=== PATIENT | female | born 1965 | race Caucasian/White ===

== ENCOUNTER 2016-09-24 13:47 | Emergency (ER) | payer BC ==
[2016-09-24 13:48] VITALS: BMI 37.8
[2016-09-24] MEDS ORDERED: Sodium Chloride 0.9% 1,000 ML IV ONE (14:49)
[2016-09-24] MEDS ORDERED: Sodium Chloride 0.9% 1,000 ML ONE (15:12)
[2016-09-24 15:14] LABS: HCG,QUALITATIVE URINE NEGATIVE (NEGATIVE)
[2016-09-24 15:16] LABS: BASO % 0.6 % (0.0-2.0); EOS # 0.1 K/uL (0.0-0.7); EOS % 2.1 % (0.0-4.0); HEMOGLOBIN 14.5 g/dL (11.0-16.0); LYMPH # 1.9 K/uL (1.0-4.3); LYMPH % 28.7 % (20.0-40.0); MEAN CELL VOLUME 89.5 fL (81.0-99.0); MEAN CORPUSCULAR HGB CONC 33.5 g/dL (33.0-37.0); MEAN PLATELET VOLUME 8.4 fL (7.2-11.7); MONO # 0.5 K/uL (0.0-0.8); MONO % 8.4 % (0.0-10.0); NEUT # 3.9 K/uL (1.8-7.0); NEUT % 60.2 % (50.0-75.0); RBC 4.84 Mil/uL (3.80-5.20); WHITE BLOOD COUNT 6.5 K/uL (4.8-10.8)
[2016-09-24 15:18] LABS: SQUAMOUS EPITHIAL 9 /hpf (0-5); URINE BACTERIA RARE (<OCC); URINE BILIRUBIN NEGATIVE (NEGATIVE); URINE BLOOD NEGATIVE (NEGATIVE); URINE CLARITY Hazy (Clear); URINE COLOR Yellow (YELLOW); URINE GLUCOSE (UA) NORMAL (Normal); URINE LEUKOCYTE ESTERASE TRACE Leu/uL (Negative); URINE NITRATE NEGATIVE (NEGATIVE); URINE PROTEIN NEGATIVE (NEGATIVE); URINE UROBILINOGEN NORMAL mg/dL (0.2-1.0)
[2016-09-24 15:25] LABS: ALBUMIN 4.4 g/dL (3.5-5.0)
[2016-09-24 15:28] LABS: ALB/GLOB RATIO 1.1 (1.0-2.1); ALT/SGPT 67 U/L (9-52); AST/SGOT 57 U/L (14-36); BLOOD UREA NITROGEN 17 mg/dL (7-17); CALCIUM 9.6 mg/dl (8.6-10.4); GFR AFRICAN-AMERICAN > 60; GFR NON-AFRICAN AMERICAN > 60; LIPASE 51 U/L (23-300)
[2016-09-24] MEDS ORDERED: Iohexol 350mg/ml 100 ML ONE (17:15)
--- NOTE | 2016-09-24 18:47 | CT ---
PROCEDURE: CT scan abdomen and pelvis dated 09/24/2016. . HISTORY: RLQ pain COMPARISON: Comparison made with CT scan abdomen pelvis 12/13/2013 TECHNIQUE: Contiguous axial images of the abdomen and pelvis pelvis performed following intravenous injection of approximately 100 cc Omnipaque 350 contrast material. Additional 2 dimensional sagittal and coronal reformats provided. . Coronal and Sagittal reformats generated. . Note that oral contrast material present in the stomach and proximal small bowel. Radiation dose: Total exam DLP = 1028.00 mGy-cm. . This CT exam was performed using one or more of the following dose reduction techniques: Automated exposure control, adjustment of the mA and/or kV according to patient size, and/or use of iterative reconstruction technique. FINDINGS: LOWER THORAX: Lung bases are clear. No infiltrate effusion or basilar pneumothorax. The the tech the the LIVER: The liver exhibits normal size measuring approximately 16 cm in CC dimension. Mild fatty hepatic infiltration. Re- demonstrated is a small approximately 11 mm in round/ elliptical shaped low-attenuation along the subcapsular surface right superior aspect right lobe liver which could represent small cyst based on Hounsfield units low double digits. . This appears unchanged from prior study GALLBLADDER AND BILE DUCTS: Gallbladder is physiologically distended. No evidence of intraluminal gallbladder calculi. . PANCREAS: Pancreas is grossly unremarkable. No pancreatic mass collection or calcification. SPLEEN: Re- demonstrated is a small splenule adjacent to the anterior inferior margin of the splenic parenchyma. ADRENALS: No adrenal lesions KIDNEYS AND URETERS: Kidneys that demonstrate symmetric nephrograms. No evidence of nephrolithiasis or hydronephrosis. There is a small approximately 12 mm low-attenuation focus in the posterolateral aspect inferior pole left kidney that exhibits Hounsfield units in the at mid to upper 20s that could represent a hyperdense cyst. Nonemergent renal ultrasound followup could recommended to confirm and exclude any solid components. BLADDER: Urinary bladder is physiologically distended. No evidence of intraluminal urinary bladder calculi. REPRODUCTIVE: There appears to be a tiny 8.5 mm follicular cyst left ovary APPENDIX: Normal-appearing appendix of best seen on axial image number [id number] and coronal image number [id number]. BOWEL: Evaluation of the bowel is limited due to the incomplete opacification. . As mentioned above, the stomach is distended with oral contrast material and a small amount of air. The visualized loops of small bowel exhibit normal contour and caliber. No evidence of acute mechanical small bowel obstruction. PERITONEUM: No gross free intraperitoneal air. No free or loculated fluid collections. . There is a small rita fat containing umbilical hernia LYMPH NODES: Multiple small nonspecific retroperitoneal lymph nodes are present. Additionally, there are a few scattered small lymph nodes right lower quadrant of the abdomen suggesting mesenteric adenitis. VASCULATURE: No evidence of abdominal aortic or iliac artery aneurysm. BONES: Minor multilevel degenerative spondylosis of the lower thoracic and lumbar spine. OTHER FINDINGS: Some vague infiltration changes in the. Sacral and perirectal fat nonspecific IMPRESSION: There is mild fatty hepatic infiltration. Small slightly low-attenuation focus left kidney that may represent hyperdense cyst however nonemergent ultrasound recommended to confirm and exclude any solid components. No evidence of nephrolithiasis or hydronephrosis. No evidence of acute appendicitis. . There are some vague infiltration changes seen in the presacral/perirectal fat nonspecific Few small nonspecific lymph nodes right lower quadrant of the abdomen suggesting mesenteric adenitis. There are also a few small nonspecific retroperitoneal lymph nodes. Small fat containing umbilical hernia. There appears to be a tiny approximately 8.5 mm follicular cyst left ovary Findings discussed with Dr. Allred at approximately 6:40 p.m. with written down and read back verification
--- NOTE | 2016-09-24 19:20 | C.PDOC ---
Time Seen by Provider: 09/24/16 14:36 Chief Complaint (Nursing): Abdominal Pain History Per: Patient Onset/Duration Of Symptoms: Days (few), Waxing/Waning Current Symptoms Are (Timing): Still Present Location Of Pain/Discomfort: RLQ Quality Of Discomfort: Sharp, "Pain" Alleviating Factors: None Additional History Per: Prior Records Past Medical History Reviewed: Historical Data, Nursing Documentation, Vital Signs Vital Signs: Last Vital Signs Temp 97.7 F 09/24/16 13:55 Pulse 85 09/24/16 18:50 Resp 18 09/24/16 18:50 BP 102/69 09/24/16 18:50 Pulse Ox 98 09/24/16 18:50 - Medical History PMH: Anxiety, Kidney Stones (?), Migraine, Seizures (?) Other Surgeries: Salpingectomy Family History: States: Unknown Family Hx - Social History Hx Tobacco Use: No Hx Alcohol Use: No Hx Substance Use: No - Immunization History Hx Tetanus Toxoid Vaccination: No Hx Influenza Vaccination: Yes Hx Pneumococcal Vaccination: No Review Of Systems Except As Marked, All Systems Reviewed And Found Negative. Constitutional: Negative for: Fever, Weakness Cardiovascular: Negative for: Chest Pain Respiratory: Negative for: Shortness of Breath Gastrointestinal: Positive for: Abdominal Pain. Negative for: Vomiting Genitourinary: Positive for: Frequency (?) Musculoskeletal: Positive for: Back Pain (resolved). Negative for: Neck Pain Skin: Negative for: Rash Neurological: Negative for: Weakness, Numbness, Seizures, Altered Mental Status Physical Exam - Physical Exam Appears: Non-toxic, No Acute Distress Skin: Normal Color, Warm, Dry, No Rash Head: Atraumatic, Normacephalic Eye(s): bilateral: PERRL, EOMI Neck: Normal ROM, Supple Cardiovascular: Rhythm Regular Respiratory: Normal Breath Sounds, No Accessory Muscle Use Gastrointestinal/Abdominal: Soft, Tenderness (RLQ), No Guarding, No Rebound Back: No CVA Tenderness Extremity: Normal ROM Neurological/Psych: Oriented x3, Normal Motor, Normal Sensation ED Course And Treatment - Laboratory Results Result Diagrams: 09/24/16 15:09 09/24/16 15:09 Interpretation Of Abnormal: Probable UTI Urine POC: Negative O2 Sat by Pulse Oximetry: 98 Pulse Ox Interpretation: Normal - CT Scan/US CT abd/pelv. Other Rad Studies (CT/US): Read By Radiologist, Radiology Report Reviewed CT/US Interpretation: IMPRESSION: There is mild fatty hepatic infiltration. Small slightly low-attenuation focus left kidney that may represent hyperdense cyst however nonemergent ultrasound recommended to confirm and exclude any solid components. No evidence of nephrolithiasis or hydronephrosis. No evidence of acute appendicitis. . There are some vague infiltration changes seen in the presacral/perirectal fat nonspecific Few small nonspecific lymph nodes right lower quadrant of the abdomen suggesting mesenteric adenitis. There are also a few small nonspecific retroperitoneal lymph nodes. Small fat containing umbilical hernia. There appears to be a tiny approximately 8.5 mm follicular cyst left ovary Progress - Interventions Interventions:: Observation, Intravenous fluid - Medications Administered Intravenous: NSAID - Data Reviewed Data Reviewed: Lab, Diagnostic imaging, Old records - Patient Status Patient status: Mostly improved - Continuity of Care Discussed patient case with:: Patient, ED Nurse - Patient Plan Patient Plan: Discharge, F/U with PCP, Continue present meds Disposition Counseled Patient/Family Regarding: Studies Performed, Diagnosis, Need For Followup, Rx Given - Disposition Referrals: Myles Villanueva MD [Staff Provider] - Disposition: HOME/ ROUTINE Disposition Time: 19:21 Condition: STABLE Additional Instructions: Drink plenty of fluids. Follow up with your doctor for further evaluation and treatment. Return to the ER if you develop fever, vomiting, worsening of symptoms or if you have any other concerns. Prescriptions: Sulfamethoxazole/Trimethoprim [Bactrim DS 800 mg-160 mg] 1 tab PO BID #14 tab Instructions: Mesenteric Adenitis (ED), Urinary Tract Infection in Women (ED) - Clinical Impression Clinical Impression: Abdominal pain, Mesenteric adenitis, UTI (urinary tract infection)
[2016-09-24 19:46] VITALS: BP 111/75; PULSE 66; RESP 20; TEMP 98.4; O2SAT 99
== END 2016-09-24 19:46 | disposition home or self-care (01) ==
LOC: C.ER 13:47
DX: N39.0 Urinary tract infection, site not specified (principal); I88.0 Nonspecific mesenteric lymphadenitis
CPT/HCPCS: 74177; 80053; 81001; 83690; 84703; 85025; 87086; 96374; 99285; J1885; J7040; Q9967

== ENCOUNTER 2017-04-22 15:38 | Emergency (ER) | payer BC ==
[2017-04-22 16:39] VITALS: BMI 41.5
[2017-04-22] MEDS ORDERED: Sodium Chloride 0.9% 1,000 ML IV ONE (17:45)
--- NOTE | 2017-04-22 18:00 | C.PDOC ---
History Of Present Illness 52yo female with history of migraines and gastric ulcers presents with complaints of abdominal pain since 4 days ago associated with diarrhea for the first 2 days and now with constipation. She also reports a headache with associated bodyaches. She states she has dark colored urine but denies any hematuria. She has been taking OTC imodium and nausene with no relief of symptoms. She did receive her flu vaccination this year. No other complaints. Time Seen by Provider: 04/22/17 17:10 Chief Complaint (Nursing): Abdominal Pain History Per: Patient History/Exam Limitations: no limitations Onset/Duration Of Symptoms: Days Current Symptoms Are (Timing): Still Present Location Of Pain/Discomfort: Diffuse Quality Of Discomfort: "Pain" Associated Symptoms: Nausea, Vomiting, Diarrhea, Constipation Past Medical History Reviewed: Historical Data, Nursing Documentation, Vital Signs Vital Signs: Last Vital Signs Temp 97.8 F 04/22/17 20:13 Pulse 65 04/22/17 20:13 Resp 18 04/22/17 20:13 BP 110/68 04/22/17 20:13 Pulse Ox 98 04/22/17 20:44 - Medical History PMH: Anxiety, Kidney Stones (?), Migraine, Seizures (?) Surgical History: No Surg Hx Family History: States: Unknown Family Hx - Social History Hx Tobacco Use: No Hx Alcohol Use: No Hx Substance Use: No - Immunization History Hx Tetanus Toxoid Vaccination: No Hx Influenza Vaccination: Yes Hx Pneumococcal Vaccination: No Review Of Systems Except As Marked, All Systems Reviewed And Found Negative. Constitutional: Negative for: Fever, Chills Gastrointestinal: Positive for: Abdominal Pain, Diarrhea, Constipation. Negative for: Nausea, Vomiting Physical Exam - Physical Exam Appears: Non-toxic, No Acute Distress Skin: Normal Color, Warm, Dry Head: Atraumatic, Normacephalic Eye(s): bilateral: Normal Inspection Neck: Supple Chest: Symmetrical Cardiovascular: Rhythm Regular Respiratory: Normal Breath Sounds Gastrointestinal/Abdominal: Bowel Sounds, Soft, Tenderness (diffuse), No Guarding, No Rebound Back: CVA Tenderness (Right sided) Extremity: Normal ROM Neurological/Psych: Oriented x3 ED Course And Treatment - Laboratory Results Result Diagrams: 04/22/17 18:10 04/22/17 18:10 O2 Sat by Pulse Oximetry: 98 (RA) Pulse Ox Interpretation: Normal Medical Decision Making Medical Decision Making: Impression: Abdominal pain Plan: -- Labs -- Fluids -- Protonix 40 mg IVP -- Toradol 30 mg IVP -- Rapid flu -- CT Abdomen & Pelvis with IV Contrast Time: 2034 Upon re-evaluation patient feels better and is stable for discharge home. Informed to follow up with Dr. Villanueva in 1-2 days. Diagnosis: UTI, abdominal pain. Disposition Counseled Patient/Family Regarding: Studies Performed, Diagnosis, Need For Followup, Rx Given - Disposition Referrals: Myles Villanueva MD [Staff Provider] - Disposition: HOME/ ROUTINE Disposition Time: 20:41 Condition: STABLE Additional Instructions: follow up with your doctor in 2 days call to make an appointment take medications as prescribed return to ER if symptoms worsens or progress Prescriptions: Famotidine [Pepcid] 20 mg PO BID #20 tab Sulfamethoxazole/Trimethoprim [Bactrim DS 800 mg-160 mg] 1 tab PO BID #14 tab traMADol [Ultram] 50 mg PO TID PRN #10 tab PRN Reason: Pain, Moderate (4-7) Instructions: Urinary Tract Infection in Women (ED), Abdominal Pain (ED) Forms: General Discharge Instructions, [facility] ([place]), Work Excuse - Clinical Impression Clinical Impression: Abdominal pain, UTI (urinary tract infection) - Scribe Statement The provider has reviewed the documentation as recorded by the Scribe (Vonnie Carmen) Provider Attestation: All medical record entries made by the Scribe were at my direction and personally dictated by me. I have reviewed the chart and agree that the record accurately reflects my personal performance of the history, physical exam, medical decision making, and the department course for this patient. I have also personally directed, reviewed, and agree with the discharge instructions and disposition.
[2017-04-22] MEDS ORDERED: Sodium Chloride 0.9% 1,000 ML ONE (18:11)
[2017-04-22 18:14] LABS: BASO # 0.1 K/uL (0.0-0.2); BASO % 0.8 % (0.0-2.0); EOS # 0.1 K/uL (0.0-0.7); HEMOGLOBIN 14.3 g/dL (11.0-16.0); LYMPH # 2.4 K/uL (1.0-4.3); LYMPH % 31.6 % (20.0-40.0); MEAN CELL VOLUME 88.1 fL (81.0-99.0); MEAN CORPUSCULAR HEMOGLOBIN 30.2 pg (27.0-31.0); MEAN CORPUSCULAR HGB CONC 34.2 g/dL (33.0-37.0); MEAN PLATELET VOLUME 8.1 fL (7.2-11.7); MONO # 0.6 K/uL (0.0-0.8); MONO % 7.7 % (0.0-10.0); NEUT # 4.4 K/uL (1.8-7.0); NEUT % 57.9 % (50.0-75.0); NRBC % 0.1 % (0.0-2.0); RBC 4.72 Mil/uL (3.80-5.20); RED CELL DISTRIBUTION WIDTH 13.2 % (11.5-14.5); WHITE BLOOD COUNT 7.6 K/uL (4.8-10.8)
[2017-04-22 18:27] LABS: ALB/GLOB RATIO 1.1 (1.0-2.1); ALBUMIN 4.4 g/dL (3.5-5.0); ALT/SGPT 41 U/L (9-52); AST/SGOT 31 U/L (14-36); BLOOD UREA NITROGEN 20 mg/dL (7-17); CALCIUM 9.4 mg/dl (8.6-10.4); GFR AFRICAN-AMERICAN > 60; GFR NON-AFRICAN AMERICAN > 60; LIPASE 70 U/L (23-300)
[2017-04-22 18:44] LABS: URINE CLARITY Hazy (Clear)
[2017-04-22 18:45] LABS: URINE BILIRUBIN NEGATIVE (NEGATIVE); URINE BLOOD 1+ (NEGATIVE); URINE GLUCOSE (UA) Normal (Normal); URINE NITRATE NEGATIVE (NEGATIVE); URINE PROTEIN NEGATIVE (NEGATIVE); URINE UROBILINOGEN Normal mg/dL (0.2-1.0)
[2017-04-22 18:46] LABS: SQUAMOUS EPITHIAL 4 /hpf (0-5); URINE CALCIUM OXALATE CRYSTALS OCC /hpf (<OCC); URINE LEUKOCYTE ESTERASE 2+ Leu/uL (Negative)
[2017-04-22 18:47] LABS: URINE BACTERIA OCC (<OCC); URINE COLOR YELLOW (YELLOW)
[2017-04-22 19:00] VITALS: RESP 18
[2017-04-22] MEDS ORDERED: Iohexol 300 100 ML IJ ONE (19:23)
[2017-04-22] MEDS ORDERED: Tmp-Smz 800 mg-160 mg DS Tab PO STA (20:06)
[2017-04-22] MEDS ORDERED: Tmp-Smz 800 mg-160 mg DS Tab ONE (20:12)
[2017-04-22 20:14] VITALS: BP 110/68; PULSE 65; TEMP 97.8
--- NOTE | 2017-04-22 20:26 | CT ---
EXAM: CT Abdomen and Pelvis With Intravenous Contrast EXAM DATE/TIME: 04/22/2017 5:46 PM CLINICAL HISTORY: 52 years old, female; Pain; Abdominal pain; Flank; Left lower quadrant (llq); Additional info: Abd. Pain TECHNIQUE: Axial computed tomography images of the abdomen and pelvis with intravenous contrast. All CT scans at this facility use one or more dose reduction techniques, viz.: automated exposure control; ma/kV adjustment per patient size (including targeted exams where dose is matched to indication; i.e. head); or iterative reconstruction technique. Coronal and sagittal reformatted images were created and reviewed. CONTRAST: 100 mL of OMNIPAQUE 320 administered intravenously. COMPARISON: CT - ABD PELVIS IV CONTRAST ONLY 2016-09-24 17:38 FINDINGS: Lower thorax: Heart size is normal. There is scarring at the lung bases. ABDOMEN: Liver: There is fatty infiltration of the liver. There is a cyst in the liver. Gallbladder and bile ducts: unremarkable Pancreas: unremarkable Spleen: Spleen is unremarkable. There is an accessory spleen in the left upper quadrant. Adrenals: unremarkable Kidneys and ureters: There is a left renal cyst.Kidneys and ureters are otherwise unremarkable. Stomach and bowel: Stomach is incompletely distended. Rotation is normal. There is no small bowel obstruction. Ileocecal region is unremarkable. Appendix and terminal ileum are unremarkable. There is moderate stool in the colon. There is scattered diverticulosis Appendix: See stomach and bowel PELVIS: Bladder: unremarkable Reproductive: Uterus and adnexal structures are unremarkable. ABDOMEN and PELVIS: Intraperitoneal space: There is no free air or free fluid. Bones/joints: There are degenerative changes in the osseus structures. Soft tissues: There is a very small fat containing umbilical hernia. Vasculature: Vascular structures are unremarkable. Lymph nodes: There is shotty adenopathy. IMPRESSION: Diverticulosis without CT findings of diverticulitis; fatty liver, no acute solid visceral abnormality Additional nonemergent findings as described above.
[2017-04-22 20:43] VITALS: O2SAT 98
== END 2017-04-22 21:11 | disposition home or self-care (01) ==
LOC: C.ER 15:38
DX: N39.0 Urinary tract infection, site not specified (principal); R10.9 Unspecified abdominal pain
CPT/HCPCS: 74177; 80053; 81001; 83690; 85025; 87804; 96361; 96374; 96375; 99285; C9113; J1885; J7040; Q9967

== ENCOUNTER 2017-05-13 12:19 | Emergency (ER) | payer BC ==
[2017-05-13 12:20] VITALS: BMI 41.5
[2017-05-13 12:27] VITALS: TEMP 98
[2017-05-13 14:09] LABS: BASO % 0.8 % (0.0-2.0); EOS # 0.1 K/uL (0.0-0.7); LYMPH # 1.8 K/uL (1.0-4.3); LYMPH % 38.4 % (20.0-40.0); MEAN CELL VOLUME 89.3 fL (81.0-99.0); MEAN CORPUSCULAR HEMOGLOBIN 30.8 pg (27.0-31.0); MEAN CORPUSCULAR HGB CONC 34.5 g/dL (33.0-37.0); MEAN PLATELET VOLUME 8.1 fL (7.2-11.7); MONO # 0.4 K/uL (0.0-0.8); NEUT # 2.2 K/uL (1.8-7.0); NEUT % 48.8 % (50.0-75.0); NRBC % 0.1 % (0.0-2.0); RBC 4.54 Mil/uL (3.80-5.20); RED CELL DISTRIBUTION WIDTH 13.6 % (11.5-14.5); WHITE BLOOD COUNT 4.6 K/uL (4.8-10.8)
[2017-05-13 14:18] LABS: PROTHROMBIN TIME 11.7 SECONDS (9.7-12.2)
[2017-05-13 14:22] LABS: ALB/GLOB RATIO 1.1 (1.0-2.1); ALBUMIN 4.2 g/dL (3.5-5.0); ALT/SGPT 34 U/L (9-52); AST/SGOT 31 U/L (14-36); BLOOD UREA NITROGEN 17 mg/dL (7-17); CALCIUM 9.1 mg/dl (8.6-10.4); GFR AFRICAN-AMERICAN > 60; GFR NON-AFRICAN AMERICAN > 60
[2017-05-13 14:34] LABS: CK-MB 0.23 ng/mL (0.0-3.38)
--- NOTE | 2017-05-13 14:38 | RAD ---
HISTORY: cough, chest pain COMPARISON: Chest x-ray performed 03/26/16 TECHNIQUE: Chest PA and lateral FINDINGS: Examination limited by habitus and hypoinflation. LUNGS: No focal consolidation. Please note that chest x-ray has limited sensitivity for the detection of pulmonary masses. PLEURA: No significant pleural effusion identified. No definite pneumothorax . CARDIOVASCULAR: The cardiomediastinal silhouette appears within normal limits of size. OSSEOUS STRUCTURES: Degenerative changes. VISUALIZED UPPER ABDOMEN: Unremarkable. OTHER FINDINGS: None. IMPRESSION: Hypoinflation.
[2017-05-13 15:40] VITALS: BP 104/69; PULSE 78; RESP 16
[2017-05-13 15:41] VITALS: O2SAT 97
--- NOTE | 2017-05-13 15:41 | C.PDOC ---
History Of Present Illness 52 year old female presents to the ED for evaluation of sharp mid-sternal chest pain and bilateral arm numbness which began earlier today. Patient also reports cough that is productive of yellow sputum and occasional difficulty in breathing. Patient denies fever, rash, travel, chills, nausea, vomiting. Time Seen by Provider: 05/13/17 13:26 Chief Complaint (Nursing): Chest Pain History Per: Patient History/Exam Limitations: no limitations Onset/Duration Of Symptoms: Hrs Current Symptoms Are (Timing): Still Present Quality: "Pain" Associated Symptoms: denies: Nausea Exacerbating Factors: Deep Breathing Alleviating Factors: None Recent travel outside of the [place]: No Past Medical History Reviewed: Historical Data, Nursing Documentation, Vital Signs Vital Signs: Last Vital Signs Temp 98.0 F 05/13/17 12:24 Pulse 78 05/13/17 15:39 Resp 16 05/13/17 15:39 BP 104/69 05/13/17 15:39 Pulse Ox 97 05/13/17 18:42 - Medical History PMH: Anxiety, Kidney Stones (?), Migraine, Seizures (?) Surgical History: No Surg Hx Family History: States: Unknown Family Hx - Social History Hx Tobacco Use: No Hx Alcohol Use: No Hx Substance Use: No - Immunization History Hx Tetanus Toxoid Vaccination: No Hx Influenza Vaccination: Yes Hx Pneumococcal Vaccination: No Review Of Systems Except As Marked, All Systems Reviewed And Found Negative. Constitutional: Negative for: Fever, Chills Cardiovascular: Positive for: Chest Pain Respiratory: Positive for: Cough, Shortness of Breath, Sputum Neurological: Positive for: Numbness (arms ) Physical Exam - Physical Exam Appears: Non-toxic, No Acute Distress Skin: Normal Color, Warm, Dry, No Rash Head: Atraumatic, Normacephalic Eye(s): bilateral: Normal Inspection Oral Mucosa: Moist Neck: Normal ROM, Supple Chest: Symmetrical, No Deformity, No Tenderness Cardiovascular: Rhythm Regular, No Friction Rub, No Murmur Respiratory: No Rales, Rhonchi, No Wheezing Gastrointestinal/Abdominal: Soft, No Tenderness Back: Normal Inspection, No CVA Tenderness Extremity: Normal ROM, Capillary Refill (less than 2 seconds ), No Swelling Neurological/Psych: Oriented x3, Normal Speech, Normal Cognition, Normal Motor, Normal Sensation Gait: Steady ED Course And Treatment - Laboratory Results Result Diagrams: 05/13/17 14:06 05/13/17 14:06 O2 Sat by Pulse Oximetry: 97 (on RA ) Pulse Ox Interpretation: Normal Medical Decision Making Medical Decision Making: Progress: Bloodwork and urinalysis ordered and reviewed. Toradol IVP administered. On re-exam, the patient reports improvement of symptoms. Lungs are CTA, heart is RRR, abdomen is soft, [id number] and tolerating PO well. ambulatory in the ED with steady gait. Return if worsened. Disposition - Disposition Referrals: Myles Villanueva MD [Staff Provider] - Disposition: HOME/ ROUTINE Disposition Time: 15:38 Condition: GOOD Additional Instructions: Follow up with the medical doctor within 1-2 days. Return if worsened. Prescriptions: Benzonatate [Tessalon Perles] 100 mg PO TID PRN #21 sgl PRN Reason: Cough Ibuprofen [Motrin] 600 mg PO TID #21 tab Loratadine [Claritin] 10 mg PO DAILY #10 tab predniSONE [Prednisone] 20 mg PO BID #10 tab Instructions: Costochondritis Forms: [facility] (Polish), Work Excuse - Clinical Impression Clinical Impression: Costochondritis, Bronchitis - PA / [employer] / Resident Statement MD/DO has reviewed & agrees with the documentation as recorded. - Scribe Statement The provider has reviewed the documentation as recorded by the Scribe (Ruth Miller) All medical record entries made by the Scribe were at my direction and personally dictated by me. I have reviewed the chart and agree that the record accurately reflects my personal performance of the history, physical exam, medical decision making, and the department course for this patient. I have also personally directed, reviewed, and agree with the discharge instructions and disposition.
--- NOTE | 2017-05-14 07:52 | CARD ---
APPROVED REPORT EKG Measurement Heart [id number] <Conclusion> Normal sinus rhythm Normal ECG
== END 2017-05-13 16:06 | disposition home or self-care (01) ==
LOC: C.ER 12:19
DX: M94.0 Chondrocostal junction syndrome [Tietze] (principal); J40 Bronchitis, not specified as acute or chronic
CPT/HCPCS: 71046; 80053; 82550; 82553; 84484; 85025; 85610; 85730; 93005; 96374; 99285; J1885

== ENCOUNTER 2018-03-18 15:15 | Emergency (ER) | payer BC ==
[2018-03-18 15:26] VITALS: BMI 42.9
[2018-03-18 15:34] VITALS: RESP 20
[2018-03-18] MEDS ORDERED: Naproxen 550 mg Tab PO STA (18:15)
[2018-03-18] MEDS ORDERED: Naproxen 550 mg Tab PO ONE (18:25)
--- NOTE | 2018-03-18 19:01 | RAD ---
HISTORY: cough COMPARISON: Chest x-ray performed 05/13/14 TECHNIQUE: Chest PA and lateral FINDINGS: Examination limited by habitus. LUNGS: No focal consolidation. Please note that chest x-ray has limited sensitivity for the detection of pulmonary masses. PLEURA: No significant pleural effusion identified. No definite pneumothorax . CARDIOVASCULAR: Heart size appears within normal limits. Faint atherosclerotic calcification of the aortic knob. OSSEOUS STRUCTURES: Mild degenerative changes. VISUALIZED UPPER ABDOMEN: Unremarkable. OTHER FINDINGS: None. IMPRESSION: No focal consolidation.
--- NOTE | 2018-03-18 19:46 | C.PDOC ---
History Of Present Illness 53 year old female presents to the ED for evaluation of cough, chest tightness and congestion which began two weeks ago. Patient states she went back to work today and developed a rash to her bilateral knees, lower back and right upper extremity. Patient denies fever, chills, nausea, vomiting, throat swelling sensation, difficulty swallowing, dizziness, syncope, contact with new foods, soaps and lotions. Chief Complaint (Nursing): Flu-like Symptoms History Per: Patient History/Exam Limitations: no limitations Onset/Duration Of Symptoms: Hrs, Other (two weeks ) Current Symptoms Are (Timing): Still Present Associated Symptoms: Cough. denies: Fever, Chills, Nausea, Vomiting Additional History Per: Patient Past Medical History Reviewed: Historical Data, Nursing Documentation, Vital Signs Vital Signs: Last Vital Signs Temp 98.4 F 03/18/18 15:26 Pulse 76 03/18/18 15:26 Resp 20 03/18/18 15:26 BP 109/76 03/18/18 15:26 Pulse Ox 99 03/18/18 15:26 - Medical History PMH: Anxiety, Kidney Stones (?), Migraine, Seizures (?) Surgical History: No Surg Hx Family History: States: Unknown Family Hx - Social History Hx Tobacco Use: No Hx Alcohol Use: No Hx Substance Use: No - Immunization History Hx Tetanus Toxoid Vaccination: No Hx Influenza Vaccination: Yes Hx Pneumococcal Vaccination: No Review Of Systems Constitutional: Negative for: Fever, Chills ENT: Positive for: Nose Congestion Respiratory: Positive for: Cough Gastrointestinal: Negative for: Nausea, Vomiting Skin: Positive for: Rash Physical Exam - Physical Exam Appears: Non-toxic, No Acute Distress Skin: Warm, Dry, Other (erythema to lower back, bilateral knees with some excoriation and right upper extremity. no pustules, no vessicles, no increased warmth ) Head: Atraumatic, Normacephalic Eye(s): bilateral: Normal Inspection Ear(s): Bilateral: Normal Nose: Normal, No Discharge Oral Mucosa: Moist Throat: Normal, No Erythema, No Exudate Neck: Supple Chest: Symmetrical, No Deformity, Tenderness (to right costochondral region ) Cardiovascular: Rhythm Regular, No Murmur Respiratory: No Rales, Rhonchi, No Wheezing Extremity: Normal ROM, Capillary Refill (less than 2 seconds ) Neurological/Psych: Oriented x3, Normal Speech, Normal Cognition ED Course And Treatment ECG: Interpreted By Me, Viewed By Me ECG Rhythm: Sinus Rhythm Interpretation Of ECG: Normal Sinus Rhythm at rate 74bpm. Normal intervals, normal axis. No ST elevations. Rate From EC O2 Sat by Pulse Oximetry: 99 (on RA) Pulse Ox Interpretation: Normal Medical Decision Making Medical Decision Making: Progress: CXR ordered, results are negative. Naproxen PO given. On reassessment, patient is resting comfortably, showing no signs of distress and is stable for discharge. Pt will be discharged with Prednisone, cough medicine, pepcid and naproxen. She is advised to f/u with PMD within 1-2 days for further evaluation. return if worse. Disposition Counseled Patient/Family Regarding: Studies Performed, Diagnosis, Need For Followup - Disposition Disposition: HOME/ ROUTINE Disposition Time: 19:51 Condition: STABLE Prescriptions: Benzonatate [Tessalon Perles] 100 mg PO TID PRN #20 sgl PRN Reason: Cough Famotidine 20 mg PO BID #10 tablet Ibuprofen [Motrin Tab] 800 mg PO TID PRN #30 tab PRN Reason: Pain, Moderate (4-7) predniSONE [Prednisone] 40 mg PO DAILY #10 tab Instructions: Costochondritis, Viral Upper Respiratory Infection, Adult (DC), Skin Rash (DC) Forms: [facility] (Maltese), General Discharge Instructions - POA Present On Arrival: None - Clinical Impression Clinical Impression: URI (upper respiratory infection), Costochondritis, Rash and nonspecific skin eruption - Scribe Statement The provider has reviewed the documentation as recorded by the Scribe (Ruth Miller) Provider Attestation: All medical record entries made by the Scribe were at my direction and personally dictated by me. I have reviewed the chart and agree that the record accurately reflects my personal performance of the history, physical exam, medical decision making, and the department course for this patient. I have also personally directed, reviewed, and agree with the discharge instructions and disposition.
[2018-03-18 20:16] VITALS: BP 115/81; PULSE 74; TEMP 98.7; O2SAT 97
== END 2018-03-18 20:14 | disposition home or self-care (01) ==
LOC: C.ER 15:15
DX: J06.9 Acute upper respiratory infection, unspecified (principal); M94.0 Chondrocostal junction syndrome [Tietze]; R21 Rash and other nonspecific skin eruption